=== PATIENT | female | born 1985 | race Caucasian/White ===

== ENCOUNTER 2019-11-15 14:25 | Observation (INO) | payer MEDICAID, OTHER, SELFPAY ==
[~2019-11-15] VITALS: Ht 165.1 cm; Wt 96.3 kg
[2019-11-15] MEDS ORDERED: NS 1,000 ML IV ONE (16:00)
--- NOTE | 2019-11-15 16:18 | REP ---
Chest x-ray: Two views. History: a abdomen pain . Comparison study: No comparison study . Findings: The lungs are well inflated and free of infiltrate. The pleural angles are sharp. The heart size is normal. Pulmonary vasculature is not increased. No significant bony abnormality is seen. Impression: Negative chest x-ray. Electronically Signed by Contreras Hannon MD 11/15/2019 04:09 P
[2019-11-15 16:55] LABS: BASO # 0.1 10^3/uL (0.0-0.2); BASO % 0.7 % (0.0-1.0); EOS % 0.1 % (0.0-3.0); HEMOGLOBIN 13.7 g/dl (12.0-15.5); LYMPH # 2.5 10^3/uL (1.5-5.0); LYMPH % 16.5 % (24.0-44.0); MEAN CORPUSCULAR HGB CONC 32.6 g/dl (32.0-36.5); MEAN CORPUSCULAR VOLUME 88.8 fl (80.0-96.0); MONO # 0.9 10^3/uL (0.0-0.8); NEUTROPHILS # 11.4 10^3/uL (1.5-8.5); NEUTROPHILS % 76.2 % (36.0-66.0); PLATELET COUNT, AUTOMATED 457 10^3/uL (150-450); RED BLOOD COUNT 4.73 10^6/uL (4.00-5.40); WHITE BLOOD COUNT 14.9 10^3/uL (4.0-10.0)
[2019-11-15 17:22] LABS: ALBUMIN 3.7 GM/DL (3.2-5.2); ALT/SGPT 36 U/L (12-78); BILIRUBIN,DIRECT 0.2 MG/DL (0.0-0.2); BILIRUBIN,TOTAL 0.9 MG/DL (0.2-1.0); BLOOD UREA NITROGEN 6 MG/DL (7-18); CALCIUM LEVEL 8.8 MG/DL (8.5-10.1); CARBON DIOXIDE LEVEL 27 MEQ/L (21-32); CHLORIDE LEVEL 105 MEQ/L (98-107); CK-MB VALUE MASS < 1.0 NG/ML (<3.6); CPK CREATINE PHOSPHOKINASE 133 U/L (26-192); CREATININE FOR GFR 0.73 MG/DL (0.55-1.30); GLOMERULAR FILTRATION RATE > 60.0 (>60); GLUCOSE, FASTING 94 MG/DL (70-100); LIPASE 120 U/L (73-393); MB/CK RELATIVE INDEX 0.75 (< OR =4); POTASSIUM SERUM 3.6 MEQ/L (3.5-5.1); SODIUM LEVEL 140 MEQ/L (136-145); TOTAL PROTEIN 8.1 GM/DL (6.4-8.2); TROPONIN I < 0.02 NG/ML (< 0.10)
[2019-11-15] MEDS ORDERED: KETOROLAC 30 MG/ML VIAL (J1885) IV ONE (18:00)
[2019-11-15] MEDS ORDERED: CIPROFLOXACIN 400 MG in IV 1 EA IV ONE (19:00)
[2019-11-15] MEDS ORDERED: metroNIDAZOLE 500 MG in IV 1 EA IV ONE (19:00)
[2019-11-15] MEDS ORDERED: MORPHINE 2 MG/ML 1ML VIAL (J2270) IV PRN (19:30)
[2019-11-15 21:45] VITALS: BP 126/71
[2019-11-15] MEDS: D5W/LR 1,000 ML IV SCH (23:20)
[2019-11-15] MEDS: KETOROLAC 30 MG/ML VIAL (J1885) IV SCH (23:27)
[2019-11-16] VITALS: BP 102/60
--- NOTE | 2019-11-16 01:00 | ECGEPIP ---
[facility] - ED Test Date: 2019-11-15 Pat Name: JEANA SAUCEDO Department: Room: - Gender: Female Correctional Counselor: : 1985 Requested By: LENCHO Rdoriguez PA-C Order Number: [id number] Reading MD: Hugo Champion Measurements Intervals [place] Rate: 59 P: 3 LA: 132 QRS: 31 QRSD: 96 T: 1 QT: 415 QTc: 414 Interpretive Statements SINUS BRADYCARDIA Nonspecific T wave abnormality Baseline artifact Comparison tracing not on file Electronically Signed on 11-16-2019 0:59:53 EST by Hugo Champion
[2019-11-16 04:00] VITALS: BP 106/60
[2019-11-16] MEDS: KETOROLAC 30 MG/ML VIAL (J1885) IV SCH ×3 (05:39→18:34)
[2019-11-16] MEDS: metroNIDAZOLE 500 MG in IV 1 EA IV SCH ×3 (05:40→21:50)
--- NOTE | 2019-11-16 06:17 | REP ---
RIGHT UPPER QUADRANT SONOGRAPHY: HISTORY: Right upper quadrant pain. FINDINGS: Scanning through the right upper quadrant of the abdomen demonstrates poor insonation of the liver consistent with fatty infiltration. Bowel gas limits exam somewhat as well. The gallbladder contains a large quantity of hypoechoic sludge and a large impacted gallstone in the neck of the gallbladder. The gallstone measures 2.6 cm in greatest diameter. Common bile duct is normal measuring 0.5 cm in greatest diameter. The pancreas is obscured by abdominal gas. No ascites is seen. The right kidney measures 11.3 x 4.0 x 3.6 cm. IMPRESSION: Large gallstone, immobile in the neck of the gallbladder. The gallbladder somewhat distended and filled with hypoechoic sludge. There is evidence fatty infiltration of the liver. Normal CBD. Electronically Signed by Contreras Hannon MD 11/16/2019 08:45 A
[2019-11-16 07:03] LABS: HEMATOCRIT 36.5 % (36.0-47.0); HEMOGLOBIN 12.3 g/dl (12.0-15.5); MEAN CORPUSCULAR HEMOGLOBIN 29.6 pg (27.0-33.0); MEAN CORPUSCULAR HGB CONC 33.7 g/dl (32.0-36.5); PLATELET COUNT, AUTOMATED 378 10^3/uL (150-450); RED BLOOD COUNT 4.15 10^6/uL (4.00-5.40)
[2019-11-16 07:28] LABS: ALBUMIN 3.1 GM/DL (3.2-5.2); ALT/SGPT 28 U/L (12-78); BLOOD UREA NITROGEN 7 MG/DL (7-18); CALCIUM LEVEL 8.1 MG/DL (8.5-10.1); CARBON DIOXIDE LEVEL 26 MEQ/L (21-32); CHLORIDE LEVEL 108 MEQ/L (98-107); GLOMERULAR FILTRATION RATE > 60.0 (>60); GLUCOSE, FASTING 107 MG/DL (70-100); POTASSIUM SERUM 3.2 MEQ/L (3.5-5.1); SODIUM LEVEL 141 MEQ/L (136-145); TOTAL PROTEIN 6.9 GM/DL (6.4-8.2)
[2019-11-16 08:00] VITALS: BP 122/72
[2019-11-16] MEDS: CIPROFLOXACIN 400 MG in IV 1 EA IV SCH ×2 (08:11→21:50)
[2019-11-16] MEDS: D5W/LR 1,000 ML IV SCH (08:11)
[2019-11-16 16:00] VITALS: BP 125/62
[2019-11-16 20:00] VITALS: BP 116/64
--- NOTE | 2019-11-16 21:00 | HPE ---
DATE OF ADMISSION: 11/15/2019 CHIEF COMPLAINT: Right upper quadrant pain with evidence of acute cholecystitis. BRIEF HISTORY OF PRESENT ILLNESS: The patient is a 34-year-old female who presents with a 3-day history of right upper quadrant pain after eating fatty foods. She states this pain radiated all across her upper abdomen into the epigastric area, into the right flank. She noticed that the pain initially started 3 days prior to admission, settled down about 24 hours ago and then started to get worse again. She states the pain is waxing and waning, but still happens to be painful and persistent at times. PAST MEDICAL HISTORY: Significant for: History of urinary tract infections. History of smoking quit 6 YRS AGO. MEDICATIONS: None. ALLERGIES: None. PHYSICAL EXAM: Reveals a 34-year-old female who looks stated age. HEENT is unremarkable. Neck: Supple without adenopathy. Lungs: Clear to auscultation without crackles, wheezes or rhonchi. Heart is regular without murmur. Abdomen is soft, nondistended, but it is tender in the right upper quadrant with a positive Roth sign. She has some guarding without rebound. Extremities: Warm, well perfused. IMPRESSION AND PLAN: The patient has evidence of right upper quadrant tenderness, evidence of an elevated white count and imaging on gallbladder ultrasound which reveals a large gallstone stuck in the neck of the gallbladder, somewhat distended gallbladder. No significant pericholecystic fluid is appreciated. Thus, at this point, we will make her nothing by mouth, IV fluids, IV antibiotics, and we will see how she does over the next 24 hours. And depending on her progress, may start her on a clear liquid diet tomorrow and possibly progress her diet thereafter. [place]
--- NOTE | 2019-11-16 21:02 | IPN ---
DATE: 11/16/2019 Subjectively, the patient feels better today and initially she was seen earlier this morning and then again this afternoon. Has had some progressive improvement of her abdominal pain and discomfort throughout the day. She was started on a clear liquid diet and tolerated this, but still has some mild discomfort and pressure in the right upper quadrant. On reexamination, she has still some tenderness in the right upper quadrant with a positive Roth's sign. She has a decreasing white count of 12,000 earlier this morning and otherwise normal liver function tests (LFTs). IMPRESSION AND PLAN: The patient has resolving cholecystitis and will continue on a clear liquid diet today and then we will see how she is doing tomorrow morning, but probably will start her on a low-fat diet tomorrow and discharge her home with some oral antibiotics and pain control, and have her followup with myself in week or two with plans on outpatient laparoscopic cholecystectomy.
[2019-11-17] VITALS: BP 113/59
[2019-11-17] MEDS: KETOROLAC 30 MG/ML VIAL (J1885) IV SCH ×3 (00:47→11:43)
[2019-11-17 04:00] VITALS: BP 102/58
[2019-11-17] MEDS: metroNIDAZOLE 500 MG in IV 1 EA IV SCH (06:50)
[2019-11-17 07:57] LABS: HEMATOCRIT 36.3 % (36.0-47.0); HEMOGLOBIN 12.1 g/dl (12.0-15.5); MEAN CORPUSCULAR HEMOGLOBIN 29.4 pg (27.0-33.0); MEAN CORPUSCULAR HGB CONC 33.3 g/dl (32.0-36.5); MEAN CORPUSCULAR VOLUME 88.3 fl (80.0-96.0); PLATELET COUNT, AUTOMATED 355 10^3/uL (150-450); RED BLOOD COUNT 4.11 10^6/uL (4.00-5.40); WHITE BLOOD COUNT 11.6 10^3/uL (4.0-10.0)
[2019-11-17 08:00] VITALS: BP 126/75
[2019-11-17 08:16] LABS: ALBUMIN 3.1 GM/DL (3.2-5.2); ALT/SGPT 26 U/L (12-78); BLOOD UREA NITROGEN 8 MG/DL (7-18); CALCIUM LEVEL 8.1 MG/DL (8.5-10.1); CARBON DIOXIDE LEVEL 26 MEQ/L (21-32); CHLORIDE LEVEL 107 MEQ/L (98-107); CREATININE FOR GFR 0.62 MG/DL (0.55-1.30); GLOMERULAR FILTRATION RATE > 60.0 (>60); GLUCOSE, FASTING 103 MG/DL (70-100); POTASSIUM SERUM 3.5 MEQ/L (3.5-5.1); SODIUM LEVEL 141 MEQ/L (136-145); TOTAL PROTEIN 6.6 GM/DL (6.4-8.2)
[2019-11-17] MEDS: CIPROFLOXACIN 400 MG in IV 1 EA IV SCH (11:44)
[2019-11-17] MEDS ORDERED: IBUP-1022 PO (12:52)
[2019-11-17] MEDS ORDERED: CIPR-249 PO (12:52)
== END 2019-11-17 15:30 | disposition home or self-care (01) ==
LOC: M ED 14:25 → M ED INP 14:26 → ENRESERV 20:50 → M PED 21:45
PROVIDERS: ADMIT Surgery; ATTEND Surgery
DX: K81.0 Acute cholecystitis (principal); Z88.0 Allergy status to penicillin; Z87.891 Personal history of nicotine dependence
CPT/HCPCS: 36415; 71046; 76705; 80048; 80053; 80076; 81001; 82550; 82553; 83690; 84702; 85025; 85027; 93005; 96361; 96365; 96366; 96375; 96376; 99284; J0744; J1885

== ENCOUNTER 2020-01-12 06:01 | Day surgery (SDC) | payer MEDICAID, OTHER ==
[~2020-01-12] VITALS: Ht 165.1 cm; Wt 91.4 kg
[~2020-01-12 06:01] MED LIST: CIPR-249 PO; IBUP-1022 PO; LR 1,000 ML IV ONE; LevoFLOXacin IV 500 MG in IV 1 EA IV ONE
[2020-01-12] MEDS ORDERED: BUPIVACAINE/EPIN 0.25% 30 ML VIAL As Ordered ONE (07:09)
[2020-01-12] MEDS ORDERED: fentaNYL 100 MCG/2 ML INJECTION (J3010) As Ordered ONE ×4 (07:16→10:26)
[2020-01-12] MEDS ORDERED: propofoL 200 MG/20 ML VIAL As Ordered ONE (07:16)
[2020-01-12] MEDS ORDERED: ROCURONIUM BROMIDE 50 MG/5 ML VIAL As Ordered ONE (07:16)
[2020-01-12] MEDS ORDERED: LIDOCAINE 2% INJ 100 MG/5 ML SDV (FOR ANES.) As Ordered ONE (07:16)
[2020-01-12] MEDS ORDERED: ONDANSETRON 4MG/2ML VIAL (J2405) As Ordered ONE (07:17)
[2020-01-12] MEDS ORDERED: dexameTHASONE 4 MG/ML 1ML VIAL (J1100) As Ordered ONE (07:17)
[2020-01-12] MEDS ORDERED: MIDAZOLAM INJ 2 MG/2 ML VIAL (J2250) As Ordered ONE (07:17)
[2020-01-12] MEDS ORDERED: SUGAMMADEX SODIUM 500 MG/5 ML VIAL (BRIDION) As Ordered ONE (08:11)
[2020-01-12] MEDS ORDERED: KETOROLAC 60 MG/2 ML VIAL (J1885) As Ordered ONE (08:11)
[2020-01-12] MEDS ORDERED: ACETAMINOPHEN 1000MG 100ML IV BTL (OFIRMEV) (J0131 PER 10MG) As Ordered ONE (08:26)
[2020-01-12] MEDS ORDERED: BUPIVACAINE LIPOSOME/PF 1.3% 20ML VIAL (13.3MG/ML)(EXPAREL)(C9290 PER1MG) As Ordered ONE (09:19)
[2020-01-12] MEDS: fentaNYL 100 MCG/2 ML INJECTION (J3010) IV PRN ×3 (09:55→10:13)
--- NOTE | 2020-01-12 09:55 | RO ---
DATE OF PROCEDURE: 01/12/2020 PREOPERATIVE DIAGNOSIS: Cholecystitis. POSTOPERATIVE DIAGNOSIS: Cholecystitis. PROCEDURE: Laparoscopic cholecystectomy. SURGEON: Dr. Tristian Waters. PULVERIZER: ANESTHESIA: General endotracheal anesthesia. ESTIMATED BLOOD LOSS: Minimal FLUIDS: Crystalloid. DESCRIPTION OF PROCEDURE: The patient was brought to the operating room was given general anesthesia. After adequate anesthesia and preoperative antibiotics were given the patient was prepped and draped in sterile fashion. Next a supraumbilical incision was made with skin knife. Blunt dissection was carried down to fascia. Veress needle placed into the abdominal cavity and insufflated to 15 mm pressure and a dilating 5 mm trocar was placed into the peritoneal cavity and then an epigastric and two lateral trocars were placed. The umbilical site was replaced with a 10 mm trocar. The gallbladder, which was tensely distended was decompressed using an aspiration needle, grasped and retracted superiorly. Neck of the gallbladder was cleared of peritoneum and the cystic artery and cystic duct was well visualized. Cystic artery was followed up on the gallbladder itself and eventually once this was mobilized adequately, I was able to surround it, and then clipped it proximally and distally and transected. The cystic duct was well visualized. A good window behind the neck of the gallbladder was created and once this was created and mobilize the cystic duct was clipped proximally and distally and transected. The gallbladder was removed from the gallbladder bed using electrocautery and placed in an EndoCatch bag brought out through the umbilicus. The right upper quadrant was copiously irrigated until clear. All trocars removed under direct visualization. The operative field was clean, dry, bleeding mildly was appreciated and the umbilical site needed be enlarged substantially to get this large gallbladder and gallstones out. Eventually once this was removed, the umbilical site was closed with several [id number] 0 Vicryl and all incisions closed with #4-0 Vicryl. Steri-Strips and a dry sterile dressing was applied. The patient was awakened from anesthesia, extubated, brought to recovery room awake, alert, hemodynamically stable. Sponge and needle counts correct times two.
[2020-01-12] MEDS ORDERED: ONDANSETRON 4MG/2ML VIAL (J2405) IV PRN ×2 (10:00→11:01)
[2020-01-12] MEDS ORDERED: oxyCODONE 5MG TAB PO PRN (10:00)
[2020-01-12] MEDS ORDERED: LR 1,000 ML IV SCH ×2 (10:00→11:01)
[2020-01-12] MEDS ORDERED: NORCO, ANEXSIA 5/325MG TABLET (HYDROcodone/ACETAMINOPHEN) PO PRN (11:01)
[2020-01-12 13:26] VITALS: BP 110/63
== END 2020-01-12 13:27 | disposition home or self-care (01) ==
LOC: M SDC 06:01
PROVIDERS: ATTEND Surgery
DX: K80.20 Calculus of gallbladder without cholecystitis without obstruction (principal); Z87.891 Personal history of nicotine dependence; Z88.0 Allergy status to penicillin
CPT/HCPCS: 44970; 81025; 88304; C9290; J0131; J1100; J1885; J1956; J2250; J2405; J3010